=== PATIENT | female | born 1990 ===

== ENCOUNTER 2021-06-27 11:27 | Inpatient (IN) | payer SELFPAY ==
[~2021-06-27 11:27] MED LIST: Iopamidol-370 76% 500 ML 1 ML ONE
[2021-06-27 14:15] LABS: BHCG - Serum Negative (NEGATIVE); Pregs Control Background? CLEAR/WHITE (CLR/WHITE); Pregs Control Bar Appear? YES (CONTROL BAR)
[2021-06-27 14:21] LABS: ALT (SGPT) 10 U/L (8-55); AST (SGOT) 12 U/L (5-34); Albumin 3.6 g/dL (3.5-5.0); Alkaline Phosphatase 63 U/L (40-110); Anion Gap 13 mmol/L (10-20); BUN (Urea Nitrogen) 10 mg/dL (7.0-18.7); Bilirubin, Total 0.7 mg/dL (0.2-1.2); Calc. Creatinine Clearance 0 mL/min (70-130); Calcium 8.7 mg/dL (7.8-10.44); Carbon Dioxide 23 mmol/L (22-29); Chloride 107 mmol/L (98-107); Globulin 2.3 g/dL (2.4-3.5); Glucose 85 mg/dL (70-105); Protein, Total 5.9 g/dL (6.0-8.3); Sodium 139 mmol/L (136-145)
[2021-06-27 14:45] LABS: #Lymphocytes 1.9 thou/uL (1.20-3.40); #Monocytes 0.7 thou/uL (0.11-0.59); %Basophils 0.1 % (0.0-1.0); %Eosinophils 0.2 % (0.0-10.0); %Monocytes 4.6 % (0.0-10.0); %Neutrophils 83.1 % (42.0-75.0); Hemoglobin 14.3 g/dL (12.0-16.0); Mean Corpuscular HGB CONC 32.6 g/dL (32.0-36.0); Mean Corpuscular Hemoglobin 30.8 pg (27.0-31.0); Mean Corpuscular Volume 94.6 fL (78.0-98.0); Mean Platelet Volume 6.5 fL (7.4-10.4); Platelet Count 248 thou/uL (130-400); RBC Distribution Width 11.1 % (11.5-14.5); Red Blood Cell (RBC) Count 4.63 mill/uL (4.20-5.40); White Blood Cell (WBC) Count 15.6 thou/uL (4.8-10.8)
[2021-06-27] MEDS ORDERED: Acetaminophen 500 MG TAB ONE (14:53)
[2021-06-27] MEDS ORDERED: Ibuprofen 800 MG TAB ONE (14:53)
[2021-06-27] MEDS ORDERED: cefTRIAXone\\ROCEPHIN 2 GM VIAL ONE (16:39)
[2021-06-27] MEDS ORDERED: Morphine 4 MG/ML VIAL ONE (17:56)
[2021-06-27] MEDS ORDERED: Ondansetron PF 4 MG/2 ML Vial IVP PRN ×2 (20:00→20:11)
[2021-06-27] MEDS ORDERED: Ondansetron ODT 4 MG TAB SL PRN (20:00)
[2021-06-27] MEDS ORDERED: Acetaminophen 325 MG TAB PO PRN (20:00)
[2021-06-27] MEDS ORDERED: Vancomycin 1 GM in Premix Bag 1 BAG IVPB SCH (20:11)
[2021-06-27] MEDS ORDERED: Pharmacy to Dose : VANC/ABX'S IVPB PRN (20:11)
[2021-06-27] MEDS ORDERED: Bisacodyl 5 MG TAB PO PRN (20:11)
[2021-06-27] MEDS: Piperacillin/Tazobactam 3.375 GM in Sodium Chloride 0.9% 100 ML IVPB SCH (21:31)
[2021-06-27 23:40] VITALS: BMI 37.8
[2021-06-28] MEDS: Vancomycin HCl 1.75 GM in Sodium Chloride 0.9% 500 ML IVPB SCH ×3 (01:57→17:19)
[2021-06-28] MEDS: Acetaminophen 325 MG TAB PO PRN ×2 (01:57→06:03)
[2021-06-28] MEDS: Piperacillin/Tazobactam 3.375 GM in Sodium Chloride 0.9% 100 ML IVPB SCH ×3 (06:01→20:50)
[2021-06-28 07:30] LABS: #Eosinphils 0.2 thou/uL (0.0-0.7); #Lymphocytes 1.9 thou/uL (1.20-3.40); #Monocytes 0.8 thou/uL (0.11-0.59); #Neutrophils 7.1 thou/uL (1.40-6.50); %Basophils 0.1 % (0.0-1.0); %Eosinophils 1.5 % (0.0-10.0); %Lymphocytes 18.8 % (21.0-51.0); %Monocytes 7.8 % (0.0-10.0); %Neutrophils 71.8 % (42.0-75.0); Hemoglobin 12.2 g/dL (12.0-16.0); Mean Corpuscular Hemoglobin 31.3 pg (27.0-31.0); Mean Platelet Volume 6.9 fL (7.4-10.4); Platelet Count 210 thou/uL (130-400); Red Blood Cell (RBC) Count 3.88 mill/uL (4.20-5.40); White Blood Cell (WBC) Count 9.9 thou/uL (4.8-10.8)
[2021-06-28 07:36] LABS: Anion Gap 12 mmol/L (10-20); BUN (Urea Nitrogen) 8 mg/dL (7.0-18.7); Calc. Creatinine Clearance 251 mL/min (70-130); Calcium 8.5 mg/dL (7.8-10.44); Carbon Dioxide 24 mmol/L (22-29); Chloride 105 mmol/L (98-107); Glucose 117 mg/dL (70-105); Sodium 137 mmol/L (136-145)
[2021-06-28] MEDS ORDERED: Morphine 2 MG/ML VIAL SLOW IVP PRN (10:20)
[2021-06-28] MEDS: HYDROcodone/Acetaminophen 5/325 mg Tablet PO PRN ×3 (11:27→21:36)
[2021-06-28 13:08] LABS: SARS-CoV-2 PCR by NAA Not Detected (NotDetected)
[2021-06-28 17:17] LABS: Vancomycin, Trough 16.6 ug/mL
[2021-06-29] MEDS: Vancomycin HCl 1.75 GM in Sodium Chloride 0.9% 500 ML IVPB SCH ×2 (01:32→09:47)
[2021-06-29] MEDS: Piperacillin/Tazobactam 3.375 GM in Sodium Chloride 0.9% 100 ML IVPB SCH ×2 (04:35→13:06)
[2021-06-29] MEDS: HYDROcodone/Acetaminophen 5/325 mg Tablet PO PRN ×2 (08:33→16:16)
[2021-06-29 17:24] LABS: Vancomycin, Trough 21.5 ug/mL
[2021-06-29] MEDS: Clindamycin 150 MG CAP PO SCH ×2 (20:45→20:46)
[2021-06-29] MEDS: Amoxicillin/Potassium Clav 875 MG TAB PO SCH (20:45)
[2021-06-29] MEDS: Acetaminophen 325 MG TAB PO PRN (20:46)
[2021-06-30] MEDS: Clindamycin 150 MG CAP PO SCH ×2 (00:33→16:50)
[2021-06-30 07:32] VITALS: BP 104/72; TEMP 97.8
[2021-06-30] MEDS ORDERED: prednisoLONE 1% Ophth Susp 5 ml Bottle R EYE SCH (08:00)
[2021-06-30] MEDS: HYDROcodone/Acetaminophen 5/325 mg Tablet PO PRN (08:08)
[2021-06-30] MEDS: Amoxicillin/Potassium Clav 875 MG TAB PO SCH (08:09)
[2021-06-30] MEDS ORDERED: LACTINEX 1 TAB PO SCH (09:00)
== END 2021-06-30 17:14 | disposition home or self-care (01) | DRG 125 ==
LOC: ERS 11:27 → T4-B 16:59
PROVIDERS: ADMIT Internal Medicine; ATTEND Family Medicine
PROC: 089 Eye, Drainage (ICD-10-PCS; principal; 2021-06-29)
DX: H10.31 Unspecified acute conjunctivitis, right eye (principal); H05.011 Cellulitis of right orbit; Z20.822 Contact with and (suspected) exposure to COVID-19; F17.210 Nicotine dependence, cigarettes, uncomplicated; Z98.890 Other specified postprocedural states; Z82.49 Family history of ischemic heart disease and other diseases of the circulatory system; Z71.6 Tobacco abuse counseling
CPT/HCPCS: 36415; 70481; 80048; 80053; 80202; 84703; 85025; 96365; 96367; 96375; J0696; J2270; J2543; J3370; J3490; J7030; Q9967; U0003; U0005